=== PATIENT | male | born 1970 | race Caucasian/White ===

== ENCOUNTER 2023-06-19 09:37 | Outpatient (AMB) | payer MEDICAID, SELFPAY ==
--- NOTE | 2023-06-19 11:03 | A.OFFVISCC_ITS ---
Intake Visit Reasons: Intake Allergies No Known Allergies Allergy (Verified 06/19/23 10:21) HPI HPI Intake: Details: Patient presents for intake Found clinic on the internet Has been a patient of [facility] in [place] where he receives 135 methadone daily PCP: Mihaela Plummer NP- next PCP appt is 06/24 He reports he is still using opiates in addition to the MTD (1/2-1 bundle daily) Lives with mom (who is an RN), brother, and adult children Mom is a good support for him Substance use hx: tobacco: 1PPD x 40 yrs, heroin/fentanyl for years began using at 31yrs old by taking opioid pills (he is unsure how much), drinks alcohol socially He denies ever sharing needles, gets clean needles from [facility] Has overdosed twice, last one he was hospitalizaed for in 2005 Spent 7 yrs in recovery, reports a trigger to relapse was the people he worked with Has previously engaged in treatment with [facility] for detox and step down Just started with new therapist- Roxana Camacho, has had 2 visits Reports history of bipolar depression, he is not currently taking meds and has no psych prescriber Hospitalized psychiatrically for SI at [facility] in 2005 Denies current SI thoughts or self-harm Allergic to bees Has COPD (controlled with daily inhaler), and umbilical hernia Hx of incarceration x 3 months in 2006 Is not currently on parole or probation His goal is to cross taper onto suboxone, and then taper off as soon as he can Review of Systems Const Reports as per HPI Physical Exam Const General: cooperative and no acute distress Resp Effort & Inspection: normal respiratory effort and able to speak in complete sentences Psych Appearance: grossly normal Mental Status: mental status grossly normal Speech and movement: Normal speech and movement present Affect: normal affect Attitude: cooperative Thought process: Normal thought process present Results AMB 14 Panel Urine Drug Screen Urine Marijuana (THC) Negative Last Edit by Briana Oscar NP on 06/19/23 11:13 Urine Cocaine Negative Last Edit by Briana Oscar NP on 06/19/23 11:13 Urine Morphine Positive Last Edit by Briana Oscar NP on 06/19/23 11:13 Urine Methamphetamine Negative Last Edit by Briana Oscar NP on 06/19/23 11:13 Urine Amphetamine Negative Last Edit by Briana Oscar NP on 06/19/23 11:1 3 Urine Benzodiazepine Negative Last Edit by Briana Oscar NP on 06/19/23 11:13 Urine Barbiturates Negative Last Edit by Briana Oscar NP on 06/19/23 11: 13 Urine Methadone Positive Last Edit by Briana Oscar NP on 06/19/23 11:13 Urine Buprenorphine Negative Last Edit by Briana Oscar NP on 06/19/23 11 :13 Urine Tricyclic Antidepressant Negative Last Edit by Briana Oscar NP on 06/19/23 11:13 Urine MDMA Negative Last Edit by Briana Oscar NP on 06/19/23 11:13 Urine Oxycodone Negative Last Edit by Briana Oscar NP on 06/19/23 11:13 Urine Phencyclidine Negative Last Edit by Briana Oscar NP on 06/19/23 11 :13 Urine Propoxyphene Negative Last Edit by Briana Oscar NP on 06/19/23 11: 13 Results Reviewed Results Reviewed: Laboratory Last Values POC Urine Buprenorphine Negative 06/19/23 11:10 POC Urine Morphine Positive 06/19/23 11:10 POC Urine Oxycodone Negative 06/19/23 11:10 POC Urine Methadone Positive 06/19/23 11:10 POC Urine Propoxyphene Negative 06/19/23 11:10 POC Urine Barbiturates Negative 06/19/23 11:10 POC U Tricyclic Antidpr Negative 06/19/23 11:10 POC Urine PCP Negative 06/19/23 11:10 POC Ur Amphetamines Negative 06/19/23 11:10 POC Ur Methamphetamine Negative 06/19/23 11:10 POC Urine MDMA Negative 06/19/23 11:10 POC Ur Benzodiazepine Negative 06/19/23 11:10 POC Urine Cocaine Negative 06/19/23 11:10 POC Ur Marijuana (THC) Negative 06/19/23 11:10 Assessment & Plan Assessment & Plan (1) Opioid use disorder: Code(s): F11.90 - Opioid use, unspecified, uncomplicated Category: Medical Plan: -Comfort meds sent to pharmacy (flexeril, clonidine, and zofran)- med education provided for each medication -Plan is for patient to begin a 9 day cross taper from MTD to suboxone, reviewed at length with him the process and rationale behind cross taper, educated him that he will likely experience some degree of withdrawal symptoms- but should be mild -Declined narcan -Patient plans on beginning cross taper on Thursday, he is to present to clinic on the last day of taper to check in -Suboxone sent to pharmacy Orders: Orders AMB 14 Panel Urine Drug Screen 06/19/23 F11.90 - Opioid use, unspecified, uncomplicated Medications: New buprenorphine-naloxone 2-0.[address] 1 strip/tab under (each) side of tongue 1 film buccal TID 16 ea 0RF buprenorphine-naloxone 8-2 mg 1 film buccal TID 12 ea 0RF ondansetron 4 mg PO Q8H PRN 30 tabs 0RF nausea and vomiting clonidine HCl 0.1 mg PO TID 30 tabs 0RF cyclobenzaprine 10 mg PO TID 30 tabs 0RF
== END 2023-06-19 10:30 | disposition home or self-care (01) ==
PROVIDERS: Visit Provider Nurse Practitioner Family
DX: F11.90 Opioid use, unspecified, uncomplicated (principal)
CPT/HCPCS: 99214

== ENCOUNTER → 2023-06-19 09:37 | Outpatient (BNVA) | payer MEDICAID, SELFPAY | PROVIDERS: Visit Provider Nurse Practitioner Family | DX: F11.20 Opioid dependence, uncomplicated (principal) | CPT/HCPCS: 80305; 99212 ==

== ENCOUNTER 2025-02-17 13:33 | Emergency (ER) | payer MEDICAID, SELFPAY ==
--- NOTE | ~2025-02-17 | US_ITS ---
EXAMINATION: US TRIPLEX LOWER EXTREMITY, LEFT CLINICAL INFORMATION: Left lower leg swelling, erythema COMPARISON: None available. TECHNIQUE: Color-flow triplex imaging with spectral analysis and compression Doppler were performed on the left lower extremity. FINDINGS: Respiratory variation, normal compression and augmented flow are noted throughout the left lower extremity. The visualized common femoral vein, superficial femoral vein, profunda femoral vein, popliteal vein and midcalf posterior tibial venous segments show no evidence of deep venous thrombosis. The peroneal veins are not visualized. There is no Aguilar's cyst. US/US venous duplex LE LT IMPRESSION: No evidence of deep venous thrombosis involving the left lower extremity. The peroneal veins of the calf are not visualized. If the patient's symptoms persist, followup ultrasound in 5-7 days might be of value to exclude proximal propagation from a non-visualized calf vein. Electronically signed by: Wade Epps MD 02/17/2025 02:36 PM [facility]
--- NOTE | 2025-02-17 14:01 | ED.LOWEXIN ---
HPI - Extremity Injury (Lower) General Chief Complaint: Extremity Injury, Lower Stated Complaint: Blood Clot In Left Leg Time Seen by Provider: 02/17/25 18:18 Source: patient, RN notes reviewed and old records reviewed Mode of arrival: ambulatory History of Present Illness ED Provider: Laury Marquez PA-C [facility] Narrative: 54-year-old male with past medical history opiate use disorder, DVT no longer on anticoagulation, presenting to the ED complaining of left lower extremity pain and swelling s/p hitting his leg on a piece of metal at work. Denies fever, chills, SOB, travel, weakness. Related Data Previous Rx's ?Medication ?Instructions ?Recorded buprenorphine 2 mg-naloxone 0.5 mg 1 film buccal TID #16 ea 06/19/23 sublingual film buprenorphine 8 mg-naloxone 2 mg 1 film buccal TID #12 ea 06/19/23 sublingual film clonidine HCl 0.1 mg tablet 0.1 mg PO TID #30 tabs 06/19/23 cyclobenzaprine 10 mg tablet 10 mg PO TID #30 tabs 06/19/23 ondansetron 4 mg disintegrating 4 mg PO Q8H PRN nausea and 06/19/23 tablet vomiting #30 tabs cephalexin 500 mg capsule 500 mg PO QID 7 days #28 caps 02/17/25 furosemide 20 mg tablet (Lasix) 20 mg PO DAILY 5 days #5 tabs 02/17/25 Allergies Allergy/AdvReac Type Severity Reaction Status Date / Time No Known Allergies Allergy Verified 02/17/25 14:05 Review of Systems Review of Systems: Yes all other systems are reviewed and are negative Constitutional: Constitutional: Reports as per [facility] Past Medical History Attestation statement: The following information was validated with the patient. Source: old records reviewed Social History Social History Advance Directives: No Advance Directives Information Provided: Yes Do you have a plan to hurt others: No Plan Physical Exam Vital Signs: Vital Signs: Last Vital Signs Temp 97.2 F 02/17/25 18:19 Pulse 78 02/17/25 18:19 Resp 20 02/17/25 18:19 BP 145/86 H 02/17/25 18:19 Pulse Ox 98 02/17/25 18:19 O2 Del Method Room Air 02/17/25 18:19 BMI result Body Mass Index 27.5 Const: General: cooperative, healthy appearing and no acute distress Orientation/consciousness: patient oriented x3 Limitations: no limitations HEENT: Head: Yes normal to inspection and Yes atraumatic Ears: hearing grossly normal bilaterally General nose exam: Normal external nose present Face and sinus: Yes normal facial exam Eyes: General: appearance normal, both eyes and all related structures EOM: EOMs intact bilaterally Neck: Neck: Yes normal visual inspection and Yes no meningeal signs Resp: Effort & Inspection: normal respiratory effort and no respiratory distress Cardio: Rate: regular rate Skin: Rashes: no rashes Wounds: no wounds Neuro: General: patient oriented x3, tone normal and no meningeal signs Cranial nerves: Yes CN's II-XII intact bilaterally Gait exam (Neuro): Normal gait present Extrem: Other: + bilateral LE pitting edema > LLE. + left lower extremity distal tib/fib with faint erythema and warmth. Tender to palpation. Neurovascularly intact distally. No crepitus or streaking/lymphangitis. Compartments soft Course Course Course Narrative: This is a Rapid Medical Exam performed in triage by Laury Marquez PA-C. Full HPI, ROS and PE to be performed by primary ED provider. 54-year-old male w/pmhx opiate use d/o, DVT no longer on AC presenting to the ED c/o LLE pain & swelling. States may have hit leg on metal at work. Denies SOB PE: + bilateral LE pitting edema greatest on the left. Left lower extremity with warmth and slight erythema Plan: Labs, ultrasound 6:40 PM 02/17/2025 (Laury Marquez PA-C): Labs reassuring US venous duplex LE LT IMPRESSION: No evidence of deep venous thrombosis involving the left lower extremity. The peroneal veins of the calf are not visualized. If the patient's symptoms persist, followup ultrasound in 5-7 days might be of value to exclude proximal propagation from a non-visualized calf vein. > will discharge patient home with p.o. Keflex for possible early cellulitis and Lasix x5 days with close PCP follow-up. Results discussed with patient including worrisome signs and symptoms and strict return precautions, and when to return to the emergency department. They verbalized understanding and feel safe for discharge at this time. Medical Decision Making Medical Decision Making [facility] Narrative: 54-year-old male with past medical history opiate use disorder, DVT no longer on anticoagulation, presenting to the ED complaining of left lower extremity pain and swelling s/p hitting his leg on a piece of metal at work. On exam vital signs stable, NAD, nontoxic appearing, physical exam as noted above. Concern for early cellulitis vs DVT vs CHF. Lower suspicion for PE, compartment syndrome, septic joint Plan: Labs, ultrasound Please refer to course for remaining clinical decision making, interpretation of labs/imaging results, and discussions with consultants and/or family members. Differential Diagnosis Differential Diagnoses: The differential diagnosis associated with the presentation includes As above Admission/Observation Consideration of admission/observation: Escalation of care including admission/observation considered Lab Data [facility] Lab Attestation statement: I reviewed the patient's lab results. 02/17/25 15:15 02/17/25 15:15 Labs: Lab Results 02/17/25 Range/Units 15:15 WBC 7.6 (4.8-10.8) X10*3/uL RBC 4.63 (4.60-5.80) X10*6/uL Hgb 13.9 L (14.0-18.0) g/dl Hct 40.8 L (42.0-52.0) % MCV 88.1 (80.0-98.0) fL MCH 30.0 (27.0-33.0) pg MCHC 34.1 (31.0-36.0) g/dl RDW 13.5 (11.0-16.0) % Plt Count 154 L (160-400) X10*3/uL MPV 9.1 L (9.4-12.4) fL Immature Gran % (Auto) 0.1 (0.0-0.4) % Neut % (Auto) 59.8 (45-73) % Lymph % (Auto) 30.7 (20-40) % [place] % (Auto) 6.4 (2-11) % Eos % (Auto) 2.6 (0-4) % Baso % (Auto) 0.4 (0-2) % Lymph # (Auto) 2.3 (1.2-4.9) X10*3/uL [place] # (Auto) 0.5 (0.1-1.2) X10*3/uL Eos # (Auto) 0.2 (0.0-0.4) X10*3/uL Baso # (Auto) 0.0 (0.0-0.2) X10*3/uL Abs Immat Gran (auto) 0.01 (0.00-0.03) X10*3/uL Absolute Neuts (auto) 4.6 (2.0-8.3) x10*3/uL Absolute Nucleated RBC 0.000 (0.0-0.012) X10*3/uL Nucleated RBC % (auto) 0.0 (0.0-0.2) /100WBC Sodium 138 (135-145) mmol/L Potassium 4.3 (3.3-5.1) mmol/L Chloride 104 (96-108) mmol/L Carbon Dioxide 26 (22-29) mmol/L Anion Gap 12 (12-20) BUN 18 H (9-16) mg/dL Creatinine 0.93 (0.5-1.4) mg/dL Estim Creat Clear Calc 97.8 Estimated GFR > 60 Random Glucose 125 H (60-115) mg/dL Calcium 9.4 (8.4-10.2) mg/dL Total Bilirubin 0.3 (0.0-1.0) mg/dL Direct Bilirubin 0.1 (0.0-0.5) mg/dL AST 28 (5-37) U/L ALT 21 (0-40) U/L Alkaline Phosphatase 85 (39-117) U/L NT-Pro-B Natriuret Pep 92.0 (<300) pg/mL Total Protein 8.1 H (6.5-8.0) g/dL Albumin 4.4 (3.5-5.0) g/dL Independent Interpretation I performed an independent interpretation of an: Ultrasound Radiology Impression Discussion of test interpretation with radiology: I have reviewed the radiologist's reading. External Record Review External record reviewed: Inpatient record, Office record, Outpatient record, Prior outpatient labs, Prior outpatient radiology, Primary care record and Outside ED record Tests considered The following testing was considered but not selected: As above Prescription Management I considered prescription management with: Pain Medication and Antibiotic Chronic Conditions Patient?s care impacted by: Other Social Determinants Patient?s care significantly limited by Social Determinants of Health including: Alcoholism and drug addiction in family and Other Social Determinant of Health Discharge Plan Discharge Clinical Impression: Leg edema Cellulitis Qualifiers: Site of cellulitis of extremity: lower extremity Patient Disposition: Home, Self-Care Instructions: Cellulitis (ED), Leg Edema (ED) Additional Instructions: Your blood work and ultrasound are reassuring. We do recommend a repeat ultrasound in 5-7 days if your symptoms persist Keflex as an antibiotic please take as prescribed until completion Wear compression stockings Lasix as a water pill, take for the next 5 days as prescribed Please have close follow up with her doctor If symptoms persist or worsen area becomes increasingly red, swollen, you have shortness of breath return to the ED US venous duplex LE LT IMPRESSION: No evidence of deep venous thrombosis involving the left lower extremity. The peroneal veins of the calf are not visualized. If the patient's symptoms persist, followup ultrasound in 5-7 days might be of value to exclude proximal propagation from a non-visualized calf vein. Prescriptions: New cephalexin 500 mg capsule 500 mg PO QID 7 Days Qty: 28 0RF furosemide [Lasix] 20 mg tablet 20 mg PO DAILY 5 Days Qty: 5 0RF No Action buprenorphine-naloxone 2-0.5 mg film 1 film buccal TID Qty: 16 0RF Rx Instructions: place 1 strip/tab under (each) side of tongue buprenorphine-naloxone 8-2 mg film 1 film buccal TID Qty: 12 0RF cyclobenzaprine 10 mg tablet 10 mg PO TID Qty: 30 0RF ondansetron 4 mg tablet,disintegrating 4 mg PO Q8H PRN (Reason: nausea and vomiting) Qty: 30 0RF clonidine HCl 0.1 mg tablet 0.1 mg PO TID Qty: 30 0RF Referrals: Physician,None [Primary Care Provider, Medical] - 5 days Print Language: Norwegian
[2025-02-17 14:02] VITALS: BP 133/71; PULSE 88; RESP 20; TEMP 35.6; O2SAT 95; BMI 27.5
[2025-02-17 15:20] LABS: MANUAL DIFF FLAG NO
[2025-02-17 15:22] LABS: Hematocrit 40.8 % (42.0-52.0); Hemoglobin 13.9 g/dl (14.0-18.0); Imm Gran Abs Auto 0.01 X10*3/uL (0.00-0.03); Imm Gran Pct Auto 0.1 % (0.0-0.4); Lymphocytes Absolute Auto 2.3 X10*3/uL (1.2-4.9); Mean Corpuscular HGB Conc 34.1 g/dl (31.0-36.0); Mean Corpuscular Hemoglobin 30.0 pg (27.0-33.0); Mean Corpuscular Volume 88.1 fL (80.0-98.0); NRBC Abs Auto 0.000 X10*3/uL (0.0-0.012); NRBC Pct Auto 0.0 /100WBC (0.0-0.2); Platelet Count 154 X10*3/uL (160-400); Red Blood Count 4.63 X10*6/uL (4.60-5.80); White Blood Count 7.6 X10*3/uL (4.8-10.8)
[2025-02-17 16:23] LABS: Alanine Aminotransferase 21 U/L (0-40); Albumin Level 4.4 g/dL (3.5-5.0); Alkaline Phosphatase 85 U/L (39-117); Anion Gap 12 (12-20); Aspartate Amino Transferase 28 U/L (5-37); Blood Urea Nitrogen 18 mg/dL (9-16); Calcium 9.4 mg/dL (8.4-10.2); Carbon Dioxide 26 mmol/L (22-29); Chloride 104 mmol/L (96-108); Creatinine Clr Calc Pharmacy 97.8; Estimated Glomerular Filt Rate > 60; Potassium 4.3 mmol/L (3.3-5.1); Sodium 138 mmol/L (135-145); Total Protein 8.1 g/dL (6.5-8.0)
[2025-02-17 16:50] LABS: NT Pro B Type Natriuretic Pept 92.0 pg/mL (<300)
[2025-02-17 18:19] VITALS: BP 145/86; PULSE 78; RESP 20; TEMP 36.2; O2SAT 98
--- OUTSIDE RECORDS SUMMARY | 2025-02-17 18:34 | XMS_ITS | Data Portability ---
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 He is ambulatory. His redness and edema is better than earlier today he admits. Nothing makes sxs better or worse Denies fever, chills, abd pain, NVD, chest pain, SOB, hemoptysis, weakness, numbness/tinglin g, spreading redness, pain. No other reported sxs or concerns today. Exam: Vitals: VSS and afebrile Constitutional: 51 yo Well developed, well nourished, pleasant patient in no apparent distress. Sitting upright comfortable on his couch not toxic appearing. Eyes: No swelling, no discharge, sclera / conjunctiva clear ENT: no nasal discharge, no erythema/ exudate noted in oropharynx, uvula midline, moist mucous membranes CV: RRR, no rubs/ murmurs/ gallops heard, 2+ radial pulses bilaterally, no edema and no calf tenderness BL, neg kate's sign BL, measured legs d/t hx of DVT and at 21 cm davide down from just superior to the knee cap his legs are equal at 34 cm BL, 2+ DP/ PT pulses bilaterally Pulm: breath sounds clear and equal bilaterally, no wheeze/ rhonchi or rales on auscultation. Speaks in full sentences, no increased work of breathing. MS: Self ambulatory patient, moves all limbs without deficit, no evidence of trauma Neuro: No focal deficits, A&O x4, sensation intact to BL feet Skin: Mild redness and warmth to anterior to LLE, no posterior redness and no edema. No dilated veins or ecchymoses and no palpable cords BL. No other issues noted and remainder of visible skin is cdi. Psych: Calm, cooperative, non-manic. Pleasant. DDx considered, but not limited to: Cellulitis - ML w/ anterior redness some pain and warmth, will tx w/ doxy Necrotizing Fascitis - no crepitus, no fever, VSS, no rapid progression DVT - Wells score 0, no palpable cord, no unilateral edema, no calf pain, neg Kate's sign, pt is ambulatory. he does have hx but base don exam seems more cellulitis to anterior esparza, will get U/s as abundance of caution w/ strict ED precautions Work up/Results: U/s for full DVT r/o ordered and pending give his hx however this is very unlikely based on exam at this time, Wells Score 0 Plan/Discussion: Cellulitis: -Redness to LLE esparza, mild, some warmth -Apparently it is better than this morning -Still some sxs lingering and given hx will tx cellulitis w/ doxycycline something that should cover for MRSA as well given hx of IVDU -He has no s/s of systemic toxicity and no red flag signs at this time -U/s pending per above for full DVT r/o given reported hx of edema although no real edema is appreciated on exam, again he states his sxs have gotten better since this am -Discussed that if he does get unilateral edema, calf pain or other s/s more suggetive of DVT which he states he is estrada of given his hx and his family member being an RN he will f/u emergently for r/o on emergent basis -For now take doxycyline w/ food to avoid GI upset and f/u if sxs linger -F/u emergently for any s/s DVT as per above, spreading redness, loss of sensation, chest pain hemoptysis, SOB, weakness, severe pain, fever, chills Pt is on agreement and verbalizes understanding with the above plans at this time. Pt has no other questions or concerns at this time. All questiosn are answered to the best of my ability. Pt thanks us for our visit today. [email or web address] Not available 01/05/2022 08:37:02 Plan of Treatment Reminders Order Date Submit Date Provider Last Modified By Organization Details Last Modified Time Details Appointments None recorded. Lab None recorded. Referral None recorded. Procedures None recorded. Surgeries None recorded. Imaging US, duplex, venous, extremity, complete - patient w/ hx of LLE DVT, he has some BL edema, given hx of blood clot and his mild edema will check for DVT given his risk factors. Currently I feel his risk is very low. Well score 0-1. 2021 [facility] [employer] [address] [place] [address], [id number], 19:01:43 Medication Orders doxycycline hyclate 100 mg capsule 2021 [id number], [address] [place], [address], 15:00:30 Patient TargetsNo targets recorded. Patient InstructionsNo instructions recorded. Reason for Referral None Reported. Results Created Date Observation Date Name Description Value Unit Range Abnormal Flag Note LastModifiedBy Organization Detail LastModifiedTime 01/07/2001/06/2022 US, nito x, venou s, extre mity, compl ete VENOUS DOPPLE R EXTREM /COM FINDIN GS: Bilate ral Lower Extrem ity Venous Duplex Ultras ound: Clinic alHist ory: Pain and swelli ng High-r esolut ion real-t rosy two-di mensio nal and Dopple r ultras ound, includ ing graysc fernando and color flow of the venous system of both lower extrem ities was obtain ed. The vessel s evalua christopher within both lower extrem ities includ ed the common femora l, superf icial femora l, proxim al deep femora l, greate r saphen ous, poplit eal, customer support specialist ior tibial and calf veins. There is sponta neous and augmen christopher flow within the vessel s. There is normal compre ssion respon se and normal Dopple r was observ ed. No intral uminal thromb us is identi fied. No Aguilar' s cyst is identi fied. CONCLU TACSO: No eviden ce for deep venous thromb osis or Aguilar' s cyst. Ultras ound is only of modera te sensit ivity for the diagno sis of deep vein thromb osis of the calf. If deep vein thromb osis of the calf is of clinic al concer n, follow -up ultras ound examin ation in 4 to 7 days would be of value to exclud e propag ation of clot from the calf. ELECTR ONICAL LY SIGNED BY MITZY Kline M.D. 2021 6:54:1 8 PM EST. VENOUS DOPPLE R EXTREM /COM Result s: Bilate ral Lower Extrem ity Venous Duplex [facility] and swelli ng High-r esolut ion real-t rosy two-di mensio nal and Dopple r ultras ound, includ ing graysc fernando and color flow of the venous system of both lower extrem ities was obtain ed. The vessel s evalua christopher within both lower extrem ities includ ed the common femora l, superf icial femora l, proxim al deep femora l, greate r saphen ous, poplit eal, customer support specialist ior tibial and calf veins. There is sponta neous and augmen christopher flow within the vessel s. There is normal compre ssion respon se and normal Dopple r was observ ed. No intral uminal thromb us is identi fied. No Aguilar' s cyst is identi fied. Conclu tacos: No eviden ce for deep venous thromb osis or Aguilar' s cyst. Ultras ound is only of modera te sensit ivity for the diagno sis of deep vein thromb osis of the calf. If deep vein thromb osis of the calf is of clinic al concer n, follow -up ultras ound examin ation in 4 to 7 days would be of value to exclud e propag ation of clot from the calf. Electr onical ly signed by MITZY Kline M.D. 2021 6:54:1 8 PM EST. [email or web address] [employer] [facility] [address] [facility] [address], [place], [address], 01/07/2022 16:49:00 Result Notes None recorded. Procedures Surgical History Date Name Laterality Status Provider Name and Address Organization Details Recorded Time 01/05/20 Medication Review completed SAUL Wadsworth [address] [place], [address], [place] [facility] 01/05/2022 08:22:24 endoscopy completed SAUL Wadsworth [address], [place], [address], [place] [facility] 01/04/2022 14:52:06 Hernia Repair completed SAUL Wadsworth [address], [place], [address], [place] [facility] 01/04/2022 14:52:12 Imaging Results None recorded. Procedure Notes None recorded. Medical Equipment None Reported. Allergies No known drug allergies Medications Name Sig Start Date Stop Date Status Note LastModified by Organization Details LastModified Time doxycycline hyclate 100 mg capsule TAKE 1 CAPSULE BY MOUTH TWICE A DAY DIRECTED FOR 7 DAYS active Not Available Not Available No t Available nicotine (polacrilex ) 2 mg gum PLEASE SEE ATTACHED FOR DETAILED DIRECTION S 01/04 completed Not Available Not Available Not Available ondansetron HCl 4 mg tablet TAKE 1 TABLET BY MOUTH TWICE A DAY NEEDED FOR NAUSEA 01/04 completed Not Available Not Available Not Available omeprazole 40 mg capsule,del ayed release TAKE 1 CAPSULE BY MOUTH EVERY DAY FOR 30 DAYS 01/04 completed Not Available Not Available Not Available Condylox 0.5 % topical gel PLEASE SEE ATTACHED FOR DETAILED DIRECTION S 01/04 completed Not Available Not Available Not Available pramipexole 0.25 mg tablet TAKE 1 TABLET BY MOUTH TWICE A DAY NEEDED FOR RESTLESS LEGS 01/04 completed Not Available Not Available Not Available hydroxyzine HCl 25 mg tablet TAKE 1-2 TABLET BY MOUTH TWICE A DAY NEEDED FOR ANXIETY 01/04 completed Not Available Not Available Not Available mirtazapine 7.5 mg tablet TAKE 1 TABLET BY MOUTH EVERYDAY AT BEDTIME 01/04 completed Not Available Not Available Not Available Flovent HFA 220 mcg/actuati on aerosol inhaler INHALE 2 PUFFS BY MOUTH TWICE A DAY (USE WITH CHAMBER, RINSE MOUTH & THROAT AFTER USE) 01/04 completed Not Available Not Available Not Available methadone active Not Available Not Radha ilable Not Available varenicline tartrate 1 mg tablet PLEASE SEE ATTACHED FOR DETAILED DIRECTION S 01/04 completed Not Available Not Available Not Available ProAir HFA 90 mcg/actuati on aerosol inhaler INHALE 2 PUFFS BY MOUTH FOUR TIMES A DAY NEEDED FOR WHEEZING/ SHORTNESS OF BREATH FOR 30 DAYS active Not Available Not Available No t Available Suboxone 8 mg-2 mg sublingual film DISSOLVE 1 FILM UNDER TONGUE TWICE A DAY 01/04 completed Not Available Not Available Not Available Suboxone 2 mg-0.[address] 1 FILM UNDER TONGUE TWICE A DAY FOR TEST DOSE 01/04 completed Not Available Not Available Not Available Suboxone 4 mg-1 mg sublingual film DISSOLVE 1 FILM UNDER TONGUE ONCE A DAY 01/04 completed Not Available Not Available Not Available Spiriva Respimat 1.25 mcg/actuati on solution for inhalation INHALE 2 PUFFS DAILY active Not Available Not Available No t Available Vitals Date Recorded Respiratory rate Body temperature Heart rate Oxygen saturation Systolic And Diastolic Provider Name and Address Organization Details Last Updated DateTime 18 /min 97.6 [degF] 78 /min 97 % 132/80 mm[Hg] Not Available [facility] 14:51:10 Social History Question Answer Notes LastModified by Organizat ion Details LastModified Time Tobacco Smoking Status Current Every Day Smoker SAUL Wadsworth, [place], [address], [place] [facility] 01/04/2022 14:51:42 What Is Your Current Pack Years? 30ormorepack years Information not available 01/04/2022 How Much Tobacco Do You Smoke? 1 PPD Information not available 01/04/2022 Sex: Unknown Functional Status Question Answer Note LastModified by Organizat ion Details LastModified Time Do you use any illicit or recreational drugs? Yes current IVDU Information not available 01/04/2022 Do you or have you ever used any other forms of tobacco or nicotine? No Information not available 01/04/2022 What is your level of alcohol consumption? Occasional Information not available 01/04/2022 Mental Status None recorded. Family History Relationship Description Onset Age of this Age Resolved Age Notes LastModified by Organization Details LastModified Time Sister Malignant neoplasm of kidney crumplik Not available 2021 14:50:41 Medical History Condition Response Diabetes N Coronary Artery Disease N CHF N Parkinson's Disease N Cancer N Stroke N Dementia N Asthma N Hypothyroidism N Depression N COPD Y High Cholesterol N Rheumatoid Arthritis N Pulmonary Embolism N Hypertension N A-fib N Osteoporosis N Kidney Disease N Past Encounters Encounter ID Performer Location Encounter Start Date Encounter Closed Date Diagnosis/Indication Diagnosis SNOMED-CT Code Diagnosis ICD10 Code Diagnosis IMO Codes Diagnosis Note [id number] SAUL Mckenna [facility] [address] [place] [address] 01/04/2022 14:23:58 01/05/2022 08:50:42 Bilateral lower limb edema 497155129 R60.0 reported by patient initially but better, none really appreciate d on exam, u/s out of abundance of caution d/t his hx and reported sx of edema Cellulitis of lower limb 142442230 L03.119 Health Concerns Section Related Observation LastModified by Organization Detai ls LastModified Time None Recorded Concern Status LastModified by Organization Details LastModified Time None Recorded Advance Directives Directive None Recorded Payers Insurance Date Sequence Insurance Name Policy Number Policy Contreras Covered Member ID Contreras Member ID Guarantor Name 01/04/2022 1 *SELF PAY* Jorge L Bennett [id number] Jorge L Bennett 01/04/2022 1 [place]: [facility] Jorge L Bennett [id number] Jorge L Bennett 01/04/2022 1 [facility] (MEDICAID HMO) [id number] Jorge L Bennett [id number] Jorge L Bennett Notes Date Note Type Note Provider Name and Address Organization Details Recorded Time 01/04/2022 text/html 51 YO M new to and new to providerHx IVDU and DVTBeing seen today for a few days of LLE redness and painPaul has a family member that is an RN and she told him her needs to get checked for cellulitisHe denies any abscesses, back pain, chest pain, hemoptysis, SOBHe reports sxs are NOT The same as when he had DVT in the past, he has no real edema and no calf pain. He is ambulatory.His redness and edema is better than earlier today he admits.Nothing makes sxs better or worseDenies fever, chills, abd pain, NVD, chest pain, SOB, hemoptysis, weakness, numbness/tingling , spreading redness, pain. No other reported sxs or concerns today. SAUL Wadsworth [address], [place], [address], [place] [facility] 01/05/2022 08:37:09
[2025-02-17 18:53] VITALS: BP 145/86; PULSE 78; RESP 20; TEMP 36.2; O2SAT 98
== END 2025-02-17 18:54 | disposition home or self-care (01) ==
PROVIDERS: Physician Assistant; Emergency Provider Emergency Medicine
DX: R60.0 Localized edema (principal); L03.116 Cellulitis of left lower limb; M79.605 Pain in left leg
CPT/HCPCS: 36415; 80048; 80076; 83880; 85025; 93971; 99282; 99284

== ENCOUNTER → 2025-02-17 14:05 | Outpatient (BNV) | payer MEDICAID, SELFPAY | PROVIDERS: Visit Provider Radiology Diagnostic Ultrasound | DX: R22.42 Localized swelling, mass and lump, left lower limb (principal); L53.9 Erythematous condition, unspecified | CPT/HCPCS: 93971 ==